=== PATIENT | female | born 1965 | race Caucasian/White ===

== ENCOUNTER 2021-03-21 18:11 | Emergency (ER) | payer MEDICAID ==
[~2021-03-21] VITALS: Ht 170.2 cm; Wt 61.4 kg
[~2021-03-21 18:11] MED LIST: ALBU0.63 NEB; AZIT-72 PO; FENT1PAT7; GABA600T PO; HYDR-4353 PO; LEVO75TA PO; LIDO700A5 TP; METH-360 PO; ONDA4TAB12 PO; SIMV-42 PO
[2021-03-21 18:29] VITALS: BP 116/86
--- NOTE | 2021-03-21 19:40 | NUR ---
PT TO room, assumed care. pt hit left thumb with hammer today. bleeding controlled.
--- NOTE | 2021-03-21 19:41 | NUR ---
CMS intact to left thumb.
== END 2021-03-21 21:28 | disposition home or self-care (01) ==
LOC: ER 18:11
DX: S60.112A Contusion of left thumb with damage to nail, initial encounter (principal); Z79.2 Long term (current) use of antibiotics; Z79.899 Other long term (current) drug therapy; Z98.890 Other specified postprocedural states; X58.XXXA Exposure to other specified factors, initial encounter; Y93.89 Activity, other specified; Y92.89 Other specified places as the place of occurrence of the external cause; Y99.8 Other external cause status
CPT/HCPCS: 73140; 99283

== ENCOUNTER 2021-06-14 18:19 | Emergency (ER) | payer MEDICAID ==
[~2021-06-14] VITALS: Ht 170.2 cm; Wt 62.3 kg
[2021-06-14 18:38] VITALS: BP 128/76
== END 2021-06-14 19:44 | disposition home or self-care (01) ==
LOC: ER 18:20
DX: S63.592A Other specified sprain of left wrist, initial encounter (principal); X58.XXXA Exposure to other specified factors, initial encounter; Y93.89 Activity, other specified; Y92.89 Other specified places as the place of occurrence of the external cause; Y99.8 Other external cause status
CPT/HCPCS: 29125; 73110; 99283